=== PATIENT | male | born 1990 | race Caucasian/White ===

== ENCOUNTER 2023-11-19 23:53 | Emergency (ER) | payer MEDICAID ==
[~2023-11-19] VITALS: Ht 180.3 cm; Wt 88.5 kg
[2023-11-19 23:55] VITALS: BP_SYST 154; PULSE 85; RESP 17; TEMP 97; O2SAT 99
[2023-11-20] MEDS ORDERED: PENICILLIN G BENZATHINE 1.2 MMU/2 ML SYR IM ONE (01:00)
== END 2023-11-20 02:04 | disposition home or self-care (01) ==
LOC: SED 23:53
DX: K13.79 Other lesions of oral mucosa (principal); Z79.899 Other long term (current) drug therapy
CPT/HCPCS: 99283; 86592; 36415; 87536; 96372; J0561